=== PATIENT | male | born 1980 | race Caucasian/White ===

== ENCOUNTER → 2019-05-18 17:50 | Outpatient (BNVA) | payer BC, SELFPAY | PROVIDERS: Visit Provider Nurse Practitioner | DX: S67.22XA Crushing injury of left hand, initial encounter (principal); X58.XXXA Exposure to other specified factors, initial encounter | CPT/HCPCS: 73130 ==

== ENCOUNTER 2022-04-02 13:01 | Outpatient (CLI) | payer SELFPAY ==
--- NOTE | 2022-04-02 13:11 | XR_ITS ---
WS: [id number] RIGHT FOREARM 2 VIEWS HISTORY: pain in right forearm COMPARISON: None available. No acute fracture. Lucency through the radial styloid may be from old injury or a nutrient foramen. N o adjacent soft tissue edema to suggest this is a fracture. No significant degenerative changes. No foreign body or joint effusion. XR/XR forearm RT 2V [id number] IMPRESSION: 1. No acute fracture. 2. Lucency through the radial styloid may be from old injury or nutrient dianne en. No adjacent soft tissue edema.
== END 2022-04-02 13:02 | disposition home or self-care (01) ==
LOC: RAD 13:02
PROVIDERS: Visit Provider Nurse Practitioner Family
DX: M79.631 Pain in right forearm (principal); M79.89 Other specified soft tissue disorders
CPT/HCPCS: 73090